=== PATIENT | female | born 1955 ===

== ENCOUNTER 2017-11-04 03:58 | Emergency (ER) | payer OTHER ==
[~2017-11-04] VITALS: Ht 157.5 cm; Wt 62.0 kg
[2017-11-04 04:04] VITALS: Ht 157.5 cm; Wt 62.0 kg
--- NOTE | 2017-11-04 04:07 | ERD ---
ER Documentation Chief Complaint Chief Complaint ETOH HPI The patient is a 62-year-old female, presenting to the ER because of alcohol intoxication on the street. She denies auditory/visual hallucination, homicidal / suicidal ideation. She did not cooperate with the history and physical, the history mostly obtained from the EMS Medical/surgical history/social history/review of system: Limited due to patient does not cooperate ROS Unable to obtain Physical Exam Vitals Vital Signs Date Time Temp Pulse Resp B/P Pulse Ox O2 Delivery O2 Flow Rate FiO2 11/04/17 04:04 98.7 98 20 135/98 100 Physical Exam Const: No acute distress. Head: Atraumatic. Eyes: Normal Conjunctiva. ENT: Normal External Ears, Nose and Mouth. Neck: Full range of motion. No meningismus. Resp: Clear to auscultation bilaterally. Cardio: Regular rate and rhythm. Abd: Soft, non distended, normal bowel sounds, non tender. Skin: No petechiae or rashes. Back: No midline or flank tenderness. Ext: No cyanosis, or edema. Neur: Awake and alert. No focal deficit Psych: Limited due to her condition. Procedures/MDM MEDICAL MAKING DECISION: The patient is a 62-year-old female, presenting with acute alcohol abuse, awake, alert, ambulating independently and she eloped from the emergency department Departure Diagnosis: Primary Impression: Alcohol abuse Comments CARRIE Quintanilla MD Nov 04, 2017 04:07
== END 2017-11-04 05:06 | disposition home or self-care (01) ==
LOC: E/R 03:58
DX: F10.129 Alcohol abuse with intoxication, unspecified (principal); R40.2142 Coma scale, eyes open, spontaneous, at arrival to emergency department; R40.2242 Coma scale, best verbal response, confused conversation, at arrival to emergency department; R40.2362 Coma scale, best motor response, obeys commands, at arrival to emergency department
CPT/HCPCS: 99283